=== PATIENT | female | born 1975 | race Caucasian/White ===

== ENCOUNTER 2020-12-18 15:49 | Outpatient (CLI) | payer BC, SELFPAY ==
[2020-12-18 17:20] LABS: SARS-CoV-2 RNA PCR Negative (Negative)
== END 2020-12-18 15:50 | disposition home or self-care (01) ==
DX: R19.5 Other fecal abnormalities (principal); Z20.822 Contact with and (suspected) exposure to COVID-19
CPT/HCPCS: C9803; U0003; U0005